=== PATIENT | male | born 1945 | race Two or more races ===

== ENCOUNTER 2023-04-19 06:10 | Day surgery (SDC) | payer OTHER | END 2023-04-19 11:55 | disposition home or self-care (01) | LOC: AMB-ENDOS 06:10 | PROVIDERS: ATTEND Colon & Rectal Surgery | DX: K57.30 Diverticulosis of large intestine without perforation or abscess without bleeding (principal); K64.8 Other hemorrhoids; Z20.822 Contact with and (suspected) exposure to COVID-19 ==